=== PATIENT | male | born 1960 | race Caucasian/White ===

== ENCOUNTER 2021-07-29 06:49 | Inpatient (IN) | payer MEDICARE, OTHER ==
[~2021-07-29] VITALS: Ht 170.2 cm; Wt 68.0 kg
[2021-07-29 08:06] LABS: BUN/CREATININE RATIO 10 (0-10)
[2021-07-29 08:28] LABS: RED BLOOD COUNT 4.34 M/UL (4.20-5.50); WHITE BLOOD COUNT 5.4 K/UL (4.5-11.0)
[2021-07-29] MEDS ORDERED: BIKTARVY 50-201 EACH PO (11:48)
[2021-07-29] MEDS ORDERED: PRAVASTATIN SOD80 MG PO (11:49)
[2021-07-29] MEDS ORDERED: OZEMPIC0.25 MG/0. SQ (11:51)
[2021-07-29] MEDS ORDERED: METOPROLOL SUCC25 MG PO (11:51)
[2021-07-29] MEDS ORDERED: CLOPIDOGREL75 MG PO (11:51)
[2021-07-29] MEDS ORDERED: AMARYL2 MG PO (11:52)
[2021-07-29] MEDS ORDERED: GABAPENTIN300 MG PO (11:53)
[2021-07-29] MEDS ORDERED: ASPIRIN81 MG PO (11:53)
--- NOTE | 2021-07-29 16:48 | NUR ---
DR.ELAHI FROST MADE AWARE OF MRI RESULTS. NO NEW ORDERS GIVEN.
[2021-07-30 04:25] LABS: HEMOGLOBIN 12.4 gm/dl (14.0-17.5); RED BLOOD COUNT 4.19 M/UL (4.20-5.50); WHITE BLOOD COUNT 6.2 K/UL (4.5-11.0)
== END 2021-07-30 23:25 | disposition home or self-care (01) | DRG 66 ==
LOC: ER1 06:49 → CDU 10:03 → M/S 10:03
PROVIDERS: Emergency Medicine; Physician Assistant Medical; ADMIT Internal Medicine
PROC: B24BZZ4 Ultrasonography of Heart with Aorta, Transesophageal (ICD-10-PCS; principal; 2021-07-29)
DX: I63.89 Other cerebral infarction (principal); Z20.822 Contact with and (suspected) exposure to COVID-19; Z21 Asymptomatic human immunodeficiency virus [HIV] infection status; R29.702 NIHSS score 2; I12.9 Hypertensive chronic kidney disease with stage 1 through stage 4 chronic kidney disease, or unspecified chronic kidney disease; N18.30 Chronic kidney disease, stage 3 unspecified; E11.22 Type 2 diabetes mellitus with diabetic chronic kidney disease; G83.24 Monoplegia of upper limb affecting left nondominant side; I08.1 Rheumatic disorders of both mitral and tricuspid valves; I25.10 Atherosclerotic heart disease of native coronary artery without angina pectoris; Z95.1 Presence of aortocoronary bypass graft; Z79.82 Long term (current) use of aspirin; Z90.49 Acquired absence of other specified parts of digestive tract
CPT/HCPCS: ECHO; 36415; 70450; 70496; 70498; 70551; 71045; 80048; 80053; 80061; 82550; 82553; 82962; 83036; 83735; 83874; 84484; 85025; 85027; 85610; 85730; 93005; 93270; 93306; 97110; 97112; 97161; 97166; 99285; J7030; Q9967; U0002